=== PATIENT | female | born 1955 | race Caucasian/White ===

== ENCOUNTER → 2019-02-20 08:45 | Outpatient (CLI) | payer OTHER, SELFPAY ==
[2019-02-20 09:20] LABS: Hematocrit 41.2 % (36-46); Hemoglobin 14.5 g/dL (12.0-16.0); Mean Corpuscular HGB Conc 35.2 % (30-36); Mean Corpuscular Hemoglobin 31.2 PG (26-34); Mean Corpuscular Volume 88.6 fL (80-100); Platelet Count 269 X10^3/uL (150-400); Red Blood Cell Count 4.65 X10^6/uL (4.0-5.2); Red Cell Distribution Width 13.4 % (11.6-14.8); White Blood Cell Count 5.4 X10^3/uL (4.5-11.0)
[2019-02-20 09:52] LABS: Glucose 91 mg/dL (80-110)
[2019-02-20 10:15] LABS: Thyroid Stimulating Hormone 1.72 uIU/mL (0.47-4.68)
[2019-02-20 10:36] LABS: Vitamin B12 > 1000 pg/mL (239-931)
== END ==
PROVIDERS: Visit Provider Podiatrist
DX: G90.09 Other idiopathic peripheral autonomic neuropathy (principal)
CPT/HCPCS: 36415; 82607; 82947; 84443; 85027